=== PATIENT | male | born 1980 | race Caucasian/White ===

== ENCOUNTER 2017-04-05 19:46 | Emergency (ER) | payer BC, MEDICAID ==
[2017-04-05] MEDS ORDERED: Famotidine 20 MG/2 ML SDV IVPUSH ONE (20:34)
[2017-04-05] MEDS ORDERED: Sodium Chloride 0.9% 10 ML Syringe FLUSH PRN (20:34)
--- NOTE | 2017-04-05 21:22 | EDM.PDOC ---
ED HPI GENERAL MEDICAL PROBLEM - General Chief Complaint: Gastrointestinal Problem Stated Complaint: VOMITING/DIARRHEA/BLOOD IN VOMIT Time Seen by Provider: 04/05/17 20:15 Source of Information: Reports: Patient History Limitations: Reports: No Limitations - History of Present Illness INITIAL COMMENTS - FREE TEXT/NARRATIVE: 33-year-old male presents for evaluation treatment of diarrhea and hematemesis. Patient states that he started feeling nauseated last night. Reports he started vomiting tonight around 1700. He states that he is vomiting about 4 or 5 times. He states that they did appreciate a small amount of blood in his emesis. Unsure how many episodes of of hematemesis he has had. Last emesis was about an hour and half prior to arrival in the ER. Reports he has been having diarrhea. States he had about 4-5 episodes today. He denies any black tarry stool or any bright red blood in his stool. He reports that he parents is some chest discomfort when he vomits but does not have any chest pain at rest. He denies any dizziness, syncope or chest pain at rest. Denies any past medical history. He is not on any medications. Does not have a primary care provider. Reports he rarely drinks alcohol, only socially. He denies any drug use. - Related Data Allergies Allergy/AdvReac Type Severity Reaction Status Date / Time No Known Allergies Allergy Verified 04/05/17 19:52 Home Meds: Home Meds Multivitamin [Multi-Vitamin Daily] 1 tab PO DAILY 04/05/17 [History] Past Medical History HEENT History: Reports: Impaired Vision Other HEENT History: Wears glasses - Past Surgical History HEENT Surgical History: Reports: Oral Surgery Social & Family History - Tobacco Use Smoking Status *Q: Current Every Day Smoker Years of Tobacco use: 10 Packs/Tins Daily: 0.2 - Recreational Drug Use Recreational Drug Use: Yes Drug Use in Last 12 Months: No Recreational Drug Type: Reports: Marijuana/Hashish, Methamphetamine Recreational Drug Use Frequency: Not Used In Over 6 Months ED ROS GENERAL - Review of Systems Review Of Systems: See Below Constitutional: Reports: Chills. Denies: Fever Respiratory: Denies: Cough Cardiovascular: Denies: Chest Pain GI/Abdominal: Reports: Diarrhea, Hematemesis. Denies: Abdominal Pain, Hematochezia, Melena Neurological: Denies: Dizziness, Syncope ED EXAM, GI/ABD - Physical Exam Exam: See Below Exam Limited By: No Limitations General Appearance: Alert, WD/WN, No Apparent Distress Ears: Normal External Exam Nose: Normal Inspection Throat/Mouth: Normal Inspection, Normal Lips, Normal Voice, No Airway Compromise Respiratory/Chest: No Respiratory Distress, Lungs Clear, Normal Breath Sounds Cardiovascular: Normal Peripheral Pulses, Regular Rate, Rhythm, No Murmur GI/Abdominal Exam: Normal Bowel Sounds, Soft, Non-Tender Neurological: Alert, Oriented, Normal Cognition Psychiatric: Normal Affect, Normal Mood Skin Exam: Warm, Dry, Normal Color EKG INTERPRETATION EKG Date: 04/05/17 Time: 23:50 Rhythm: NSR Rate (Beats/Min): 114 [place]: Normal P-Wave: Present QRS: Normal ST-T: Normal QT: Normal EKG Interpretation Comments: sinus tachycardia at [address]-T wave changes. No ischmeia noted. Reviewed by myself and Dr. Mccracken. Course - Vital Signs Last Recorded V/S: Last Vital Signs Temp 37.1 C 04/05/17 19:54 Pulse 109 H 04/05/17 19:54 Resp 16 04/05/17 19:54 BP 161/92 H 04/05/17 19:54 Pulse Ox 97 04/05/17 19:54 - Orders/Labs/Meds Orders: Active Orders 24 hr Category Date Time Status EKG 12 Lead [EKG Documentation Completion] [RC] STAT Care 04/05/17 23:38 Ordered Orthostatic Vital Signs [RC] ASDIRECTED Care 04/05/17 20:34 Active Peripheral IV Care [RC] . DIRECTED Care 04/05/17 20:35 Active Chest 2V [CR] Stat Exams 04/05/17 20:34 Taken Chest Abdomen Pelvis w Cont [CT] Stat Exams 04/05/17 23:37 Ordered TYPE AND SCREEN [BBK] Stat Lab 04/05/17 23:38 Ordered Sodium Chloride 0.9% [Normal Saline] 1,000 ml Med 04/05/17 23:36 Ordered IV ONETIME Sodium Chloride 0.9% [Saline Flush] Med 04/05/17 20:34 Active 10 ml FLUSH ASDIRECTED PRN Peripheral IV Insertion Adult [OM.PC] Routine Oth 04/05/17 20:31 Ordered Medication Orders Sodium Chloride (Normal Saline) 1,000 mls @ 999 mls/hr IV ONETIME ONE Stop: 04/06/17 00:36 Last Admin: 04/05/17 23:58 Dose: 999 mls/hr Sodium Chloride (Saline Flush) 10 ml FLUSH ASDIRECTED PRN PRN Reason: Keep Vein Open Last Admin: 04/05/17 20:42 Dose: 10 ml Labs: Laboratory Tests 04/05/17 04/05/17 04/05/17 Range/Units 20:45 20:45 20:45 WBC 10.12 H (4.23-9.07) K/mm3 RBC 5.66 (4.63-6.08) M/mm3 Hgb 16.1 (13.7-17.5) gm/L Hct 45.6 (40.1-51.0) % MCV 80.6 (79.0-92.2) fl MCH 28.4 (25.7-32.2) pg MCHC 35.3 (32.2-35.5) g/dl RDW Std Deviation 39.2 (35.1-43.9) fL Plt Count 237 (163-337) K/mm3 MPV 8.2 L (9.4-12.3) fl Neutrophils % (Manual) 88 H (40-60) % Band Neutrophils % 0 (0-10) % Lymphocytes % (Manual) 8 L (20-40) % Atypical Lymphs % 0 % Monocytes % (Manual) 4 (2-10) % Eosinophils % (Manual) 0 L (0.8-7.0) % Basophils % (Manual) 0 L (0.2-1.2) Platelet Estimate Adequate Plt Morphology Comment Normal RBC Morph Comment Normal PT (8.0-13.0) SECONDS INR APTT (22-36) SECONDS Sodium 142 (136-145) mEq/L Potassium 4.1 (3.5-5.1) mEq/L Chloride 103 (98-107) mEq/L Carbon Dioxide 28 (21-32) mEq/L Anion Gap 15.1 H (5-15) BUN 17 (7-18) mg/dL Creatinine 1.2 (0.7-1.3) mg/dL Est Cr Clr Drug Dosing 81.09 mL/min Estimated GFR (MDRD) > 60 (>60) mL/min BUN/Creatinine Ratio 14.2 (14-18) Glucose 114 H (74-106) mg/dL Calcium 9.3 (8.5-10.1) mg/dL Total Bilirubin 0.8 (0.2-1.0) mg/dL AST 16 (15-37) U/L ALT 31 (16-63) U/L Alkaline Phosphatase 69 (46-116) U/L Total Protein 7.8 (6.4-8.2) g/dl Albumin 4.6 (3.4-5.0) g/dl Globulin 3.2 gm/dL Albumin/Globulin Ratio 1.4 (1-2) Ethyl Alcohol 0.00 (0.00) gm% 04/05/17 04/05/17 Range/Units 20:48 23:36 WBC (4.23-9.07) K/mm3 RBC (4.63-6.08) M/mm3 Hgb 16.0 (13.7-17.5) gm/L Hct 44.8 (40.1-51.0) % MCV (79.0-92.2) fl MCH (25.7-32.2) pg MCHC (32.2-35.5) g/dl RDW Std Deviation (35.1-43.9) fL Plt Count (163-337) K/mm3 MPV (9.4-12.3) fl Neutrophils % (Manual) (40-60) % Band Neutrophils % (0-10) % Lymphocytes % (Manual) (20-40) % Atypical Lymphs % % Monocytes % (Manual) (2-10) % Eosinophils % (Manual) (0.8-7.0) % Basophils % (Manual) (0.2-1.2) Platelet Estimate Plt Morphology Comment RBC Morph Comment PT 10.9 (8.0-13.0) SECONDS INR 1.00 APTT 26 (22-36) SECONDS Sodium (136-145) mEq/L Potassium (3.5-5.1) mEq/L Chloride (98-107) mEq/L Carbon Dioxide (21-32) mEq/L Anion Gap (5-15) BUN (7-18) mg/dL Creatinine (0.7-1.3) mg/dL Est Cr Clr Drug Dosing mL/min Estimated GFR (MDRD) (>60) mL/min BUN/Creatinine Ratio (14-18) Glucose (74-106) mg/dL Calcium (8.5-10.1) mg/dL Total Bilirubin (0.2-1.0) mg/dL AST (15-37) U/L ALT (16-63) U/L Alkaline Phosphatase (46-116) U/L Total Protein (6.4-8.2) g/dl Albumin (3.4-5.0) g/dl Globulin gm/dL Albumin/Globulin Ratio (1-2) Ethyl Alcohol (0.00) gm% Meds: Medications Generic Name Dose Route Start Last Admin Trade Name Frerosemary PRN Reason Stop Dose Admin Sodium Chloride 1,000 mls @ 999 mls/hr 04/05/17 23:36 04/05/17 23:58 Normal Saline IV 04/06/17 00:36 999 mls/hr ONETIME ONE Administration Sodium Chloride 10 ml 04/05/17 20:34 04/05/17 20:42 Saline Flush FLUSH 10 ml ASDIRECTED PRN Administration Keep Vein Open Discontinued Medications Generic Name Dose Route Start Last Admin Trade Name Mirtha PRN Reason Stop Dose Admin Famotidine 20 mg 04/05/17 20:34 04/05/17 20:42 Pepcid IVPUSH 04/05/17 20:35 20 mg ONETIME ONE Administration Sodium Chloride Confirm 04/05/17 23:42 04/06/17 00:06 Normal Saline Administered 04/05/17 23:43 Not Given Dose 1,000 mls @ as directed .ROUTE .STK-MED ONE Iopamidol 125 ml 04/05/17 23:49 04/06/17 00:12 Isovue-300 (61%) IVPUSH 04/05/17 23:50 125 ml ONETIME ONE Administration Ondansetron HCl 4 mg 04/05/17 23:38 04/05/17 23:54 Zofran IVPUSH 04/05/17 23:39 4 mg ONETIME ONE Administration Sodium Chloride 10 ml 04/05/17 23:49 04/05/17 23:59 Saline Flush FLUSH 04/05/17 23:50 10 ml ONETIME ONE Administration - Radiology Interpretation Free Text/Narrative:: Chest x-ray shows no acute intrathoracic process. CT of the chest and abdomen with IV contrast impression per vrad: wall thickening alson th e cardia and lesser curvature of the stomach. low density appearing edematous. nonspecific. Possibly gastritic. Consider endoscopy if high clinic concern or persistent symptoms. - Re-Assessments/Exams Free Text/Narrative Re-Assessment/Exam: 04/06/17 00:15 Influenza returned negative. Patient got up to use the bathroom. He had a large hematemesis. Estimated that he lost 1-2 units of blood. Emesis was strictly blood. I reviewed his lab results. He has received IV Pepcid. He'll be given Zofran IV and given a bolus of fluids. Plan will be he will likely require transfer to [place] for an upper GI bleed. We will get a CT of his abdomen and pelvis to rule out esophageal rupture. He is currently we deny any pain or nausea. 04/06/17 01:15 CT of the abdomen and pelvis return. Reviewed the CT results and the additional lab results with the patient's family. I feel he needs a higher level of care. They elected to go to [facility]. I spoke with Dr. Rodriguez at [facility] in [place]. He agrees to accept the patient. He will go by ground ambulance and be a direct admission. He'll be given a Protonix bolus of 80 mg and started on a drip of 8 mg/hr. Departure - Departure Time of Disposition: 01:19 Disposition: DC/Tfer to Acute Hospital 02 Condition: Serious Clinical Impression: Upper GI bleed - Discharge Information Referrals: PCP,None [Primary Care Provider] - Forms: ED Department Discharge Additional Instructions: Patient will go by ground ambulance to [facility]. Dr. Meyers accepting. He is a direct admission. - My Orders Last 24 Hours: My Active Orders 04/05/17 20:31 Peripheral IV Insertion Adult [OM.PC] Routine 04/05/17 20:34 Orthostatic Vital Signs [RC] ASDIRECTED Chest 2V [CR] Stat Sodium Chloride 0.9% [Saline Flush] 10 ml FLUSH ASDIRECTED PRN 04/05/17 20:35 Peripheral IV Care [RC] . DIRECTED 04/05/17 23:36 Sodium Chloride 0.9% [Normal Saline] 1,000 ml IV ONETIME 04/05/17 23:37 Chest Abdomen Pelvis w Cont [CT] Stat 04/05/17 23:38 EKG 12 Lead [EKG Documentation Completion] [RC] STAT TYPE AND SCREEN [BBK] Stat - Assessment/Plan Last 24 Hours: My Active Orders 04/05/17 20:31 Peripheral IV Insertion Adult [OM.PC] Routine 04/05/17 20:34 Orthostatic Vital Signs [RC] ASDIRECTED Chest 2V [CR] Stat Sodium Chloride 0.9% [Saline Flush] 10 ml FLUSH ASDIRECTED PRN 04/05/17 20:35 Peripheral IV Care [RC] . DIRECTED 04/05/17 23:36 Sodium Chloride 0.9% [Normal Saline] 1,000 ml IV ONETIME 04/05/17 23:37 Chest Abdomen Pelvis w Cont [CT] Stat 04/05/17 23:38 EKG 12 Lead [EKG Documentation Completion] [RC] STAT TYPE AND SCREEN [BBK] Stat
[2017-04-05] MEDS ORDERED: Sodium Chloride 0.9% 1,000 ML IV ONE (23:36)
[2017-04-05] MEDS ORDERED: Ondansetron 4 MG/2 ML SDV IVPUSH ONE (23:38)
[2017-04-05] MEDS ORDERED: Sodium Chloride 0.9% 1,000 ML ONE (23:42)
[2017-04-05] MEDS ORDERED: Iopamidol 612 MG/ML 150 ML Bottle IVPUSH ONE (23:49)
[2017-04-05] MEDS ORDERED: Sodium Chloride 0.9% 10 ML Syringe FLUSH ONE (23:49)
[2017-04-06] MEDS ORDERED: Pantoprazole 80 MG in Sodium Chloride 0.9% 100 ML IV SCH (01:00)
[2017-04-06] MEDS ORDERED: Pantoprazole 40 MG Vial IVPUSH ONE (01:01)
[2017-04-06] MEDS ORDERED: Sodium Chloride 0.9% 1,000 ML IV ONE (01:02)
[2017-04-06] MEDS ORDERED: Sodium Chloride 0.9% 10 ML Syringe FLUSH PRN (01:02)
--- NOTE | 2017-04-07 17:47 | CT ---
CT chest Technique: Multiple axial sections were obtained from above the dome of the diaphragm inferiorly through the lung bases. Intravenous contrast was utilized. Comparison: No prior chest CT, previous chest x-ray performed on 04/15/17. Findings: Mediastinum and hilar regions show no adenopathy or mass. No pericardial thickening is seen. Lungs are clear with no parenchymal densities. No pleural effusions are seen. Bone window settings were reviewed which show no acute osseous abnormality. Impression: 1. No abnormality is appreciated on CT study of the chest. Diagnostic code #1 Agree with preliminary report issued by [facility] ([employer] preliminary report dictated on 04/06/17, 1:39 AM Central Time) CT abdomen and pelvis Technique: Multiple axial sections were obtained from above the dome of the diaphragm inferiorly through the pubic symphysis. Intravenous contrast was utilized. No oral contrast has been given. Comparison: No previous abdominal imaging is available. Findings: Liver shows no focal parenchymal abnormality. Spleen appears within normal limits. Adrenal glands show no nodule. Pancreas is within normal limits. Kidneys show symmetric contrast enhancement without hydronephrosis or mass. Aorta shows no aneurysmal dilatation. No retroperitoneal adenopathy is seen. Gallbladder contains no calcified gallstones. No mesenteric abnormalities are seen. Appendix is seen which appears normal. No pelvic mass or adenopathy is seen. Fluid is identified throughout nondilated small bowel loops and colon. Equivocal thickening of portions of the stomach most likely due to under-distention. Delayed images show contrast within the bladder. Bone window settings were reviewed which appear within normal limits for the patient's age. Impression: 1. Questionable bowel wall thickening within the stomach most likely due to under-distention. 2. Fair amount of fluid within nondilated small bowel and colon. Please correlate if patient has any symptoms of gastroenteritis. 3. No additional abnormality is identified on CT study of the abdomen and pelvis. Diagnostic code #3 Agree with preliminary report issued by [facility] ([employer] preliminary report dictated on 04/06/17, 1:39 AM Central Time)
--- NOTE | 2017-04-07 17:47 | CR ---
Chest: Two views of the chest were obtained. Comparison: No prior chest x-ray. Heart size and mediastinum are within normal limits. Lungs are clear. Bony structures are within normal limits for the patient's age. Impression: 1. Nothing acute is seen on two-view chest x-ray. Diagnostic code #1
== END 2017-04-06 02:00 ==
LOC: JD.ED 19:46
DX: K92.2 Gastrointestinal hemorrhage, unspecified (principal); F17.210 Nicotine dependence, cigarettes, uncomplicated
CPT/HCPCS: 36415; 71046; 71260; 74177; 80053; 85014; 85018; 85025; 85610; 85730; 86850; 86900; 86901; 87804; 93005; 96361; 96365; 96375; 96376; 99285; C9113; G0480; J2405; J7030; J7040; J7050; Q9967; 99284

== ENCOUNTER → 2017-06-19 | Day surgery (SDC) | payer MEDICAID ==
[~2017-06-19] MED LIST: Lactated Ringers 1,000 ML IV SCH; Lidocaine 1% 4 ML ONE; Lidocaine 1%/Sod Bicarbonate in NS 8.4% 1 ML Syringe IDERM PRN; Midazolam 1 MG/ML 2 ML SDV ONE; Propofol 200 MG/20 ML SDV ONE; Sodium Chloride 0.9% 10 ML Syringe FLUSH PRN; fentaNYL 100 MCG/2 ML SDV ONE
--- NOTE | 2017-06-19 08:08 | PCM.PREANE ---
Preanesthetic Assessment - Anesthesia/Transfusion/Family Hx Anesthesia History: Prior Anesthesia Without Reaction Family History of Anesthesia Reaction: No Transfusion History: No Prior Transfusion(s) - Review of Systems General: No Symptoms, Other Pulmonary: Other (current smoker) Cardiovascular: Other (EKG on 04/[address] with Left atrial enlargement) Gastrointestinal: No Symptoms, Other (S/P jose manuel joaquin tear with blood loss anemia, here for follow up) Neurological: No Symptoms Other: Reports: Anxiety - Physical Assessment NPO Status Date: 06/18/17 NPO Status Time: 22:00 Pulse: 71 O2 Sat by Pulse Oximetry: 95 Respiratory Rate: 20 Blood Pressure: 134/85 Vital Signs: Last Vital Signs Temp 36.6 C 06/19/17 07:32 Pulse 71 06/19/17 07:32 Resp 20 06/19/17 07:32 BP 134/85 06/19/17 07:32 Pulse Ox 95 06/19/17 07:32 Height: 1.7 m Weight: 78.925 kg ASA Class: 2 Mental Status: Alert & Oriented x3 Airway Class: Mallampati = 2 Dentition: Reports: Normal Dentition ROM/Head Extension: Full Lungs: Clear to Auscultation, Normal Respiratory Effort Cardiovascular: Regular Rate, Regular Rhythm - Allergies Allergies/Adverse Reactions: Allergies Allergy/AdvReac Type Severity Reaction Status Date / Time No Known Allergies Allergy Verified 06/19/17 07:53 - Blood Blood Available: No Product(s) Available: None - Anesthesia Plan Pre-Op Medication Ordered: None - Acknowledgements Anesthesia Type Planned: MAC Pt an Appropriate Candidate for the Planned Anesthesia: Yes Alternatives and Risks of Anesthesia Discussed w Pt/Guardian: Yes Pt/Guardian Understands and Agrees with Anesthesia Plan: Yes PreAnesthesia Questionnaire HEENT History: Reports: Impaired Vision Other HEENT History: Wears glasses Cardiovascular History: Reports: None Respiratory History: Reports: None Gastrointestinal History: Reports: Other (See Below) Other Gastrointestinal History: jose manuel flores tear Genitourinary History: Reports: Renal Calculus DIRECT MARKETING COORDINATOR History: Reports: None Musculoskeletal History: Reports: None Neurological History: Reports: None Psychiatric History: Reports: None Endocrine/Metabolic History: Reports: None Hematologic History: Reports: Anemia Immunologic History: Reports: None Oncologic (Cancer) History: Reports: None Dermatologic History: Reports: None - Past Surgical History Head Surgeries/Procedures: Reports: None HEENT Surgical History: Reports: Oral Surgery Cardiovascular Surgical History: Reports: None Respiratory Surgical History: Reports: None GI Surgical History: Reports: EGD Female Surgical History: Reports: None Male Surgical History: Reports: None Endocrine Surgical History: Reports: None Neurological Surgical History: Reports: None Musculoskeletal Surgical History: Reports: None Oncologic Surgical History: Reports: None Dermatological Surgical History: Reports: None - SUBSTANCE USE Smoking Status *Q: Current Every Day Smoker Tobacco Use Within Last Twelve Months: Cigarettes Recreational Drug Use History: Yes Recreational Drug Type: Reports: Marijuana/Hashish, Methamphetamine - HOME MEDS Home Medications: Home Meds Ferrous Sulfate [Iron] 325 mg PO DAILY 06/18/17 [History] Pantoprazole Sodium [Protonix] 20 mg PO DAILY 06/18/17 [History] - CURRENT (IN HOUSE) MEDS Current Meds: Current Medications Lactated Ringer's (Ringers, Lactated) 1,000 mls @ 125 mls/hr IV ASDIRECTED THANG Stop: 06/19/17 23:00 Last Admin: 06/19/17 07:40 Dose: 125 mls/hr Lidocaine/Sodium Bicarbonate (Buffered Lidocaine 1% In Ns 8.4%) 0.25 ml IDERM ONETIME PRN PRN Reason: Prior to IV Start Stop: 06/19/17 18:00 Last Admin: 06/19/17 07:39 Dose: 0.25 ml Sodium Chloride (Saline Flush) 10 ml FLUSH ASDIRECTED PRN PRN Reason: Keep Vein Open Stop: 06/19/17 18:00 Discontinued Medications Lidocaine HCl (Xylocaine-Mpf 1%) Confirm Administered Dose 4 mls @ as directed .ROUTE .STK-MED ONE Stop: 06/19/17 07:24 Propofol (Diprivan 20 Ml) Confirm Administered Dose 200 mg .ROUTE .STK-MED ONE Stop: 06/19/17 07:24
--- NOTE | 2017-06-19 08:46 | PCM48HPAN ---
Post Anesthesia Note - EVALUATION WITHIN 48HRS OF ANESTHETIC Vital Signs in Normal Range: Yes Patient Participated in Evaluation: Yes Respiratory Function Stable: Yes Airway Patent: Yes Cardiovascular Function Stable: Yes Hydration Status Stable: Yes Pain Control Satisfactory: Yes Nausea and Vomiting Control Satisfactory: Yes Mental Status Recovered: Yes Pulse Rate: 68 SaO2: 95 Resp Rate: 10 Temperature: 37 C Blood Pressure: 116/62
--- NOTE | 2017-06-19 08:48 | PCM.OPNOTE ---
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 Through a bite-block lubricated upper endoscope was inserted into the esophagus and advanced under direct vision to the stomach. Additional air was given here followed by identification of the pylorus. The scope was introduced through the pylorus into the second part of the duodenum. The second and first parts were endoscopically normal with no mass lesions or inflammatory changes seen. The antrum was unremarkable as well. In the retroflexed view the fundus and cardiac regions were grossly normal. There was no hiatal hernia. The body of the esophagus was normal. There was no evidence of a Lorie-Meyers tear. The scope was pulled the GE junction which showed complete healing of the previously seen Lorie-Meyers tear with no residual. The body of the esophagus was grossly normal. Air was removed as I finished the procedure which he tolerated well. S[employer] Cleaning Hand photographs are taken for the patient and for the medical record.
== END | disposition home or self-care (01) ==
LOC: JD.SDS 07:28
PROVIDERS: ATTEND Surgery
DX: K22.6 Gastro-esophageal laceration-hemorrhage syndrome (principal); F41.9 Anxiety disorder, unspecified; J30.2 Other seasonal allergic rhinitis; Z79.899 Other long term (current) drug therapy
CPT/HCPCS: 43235; J2250; J3010; J7120; J2704